=== PATIENT | male | born 1960 | race Caucasian/White ===

== ENCOUNTER 2024-10-24 08:13 | Outpatient (AMB) | payer OTHER, SELFPAY | END 2024-10-24 11:32 | disposition home or self-care (01) | LOC: HO.HMGAL 08:13 | PROVIDERS: Visit Provider Registered Nurse Emergency | DX: J30.89 Other allergic rhinitis (principal) | CPT/HCPCS: 95117; 95165 ==

== ENCOUNTER 2024-12-05 08:44 | Outpatient (AMB) | payer OTHER, SELFPAY | END 2024-12-05 08:58 | disposition home or self-care (01) | LOC: HO.HMGAL 08:44 | PROVIDERS: Visit Provider Registered Nurse Emergency | DX: J30.89 Other allergic rhinitis (principal) | CPT/HCPCS: 95117; 95165 ==

== ENCOUNTER 2024-12-28 09:16 | Outpatient (AMB) | payer OTHER, SELFPAY | END 2024-12-28 09:16 | disposition home or self-care (01) | LOC: HO.HMGAL 09:16 | PROVIDERS: Visit Provider Registered Nurse Emergency | DX: J30.89 Other allergic rhinitis (principal) | CPT/HCPCS: 95117; 95165 ==

== ENCOUNTER 2025-01-23 12:45 | Outpatient (AMB) | payer OTHER, SELFPAY | END 2025-01-23 12:49 | disposition home or self-care (01) | LOC: HO.HMGAL 12:45 | PROVIDERS: PCP Family Medicine; Visit Provider Registered Nurse Emergency | DX: J30.89 Other allergic rhinitis (principal) | CPT/HCPCS: 95117; 95165 ==

== ENCOUNTER 2025-02-20 08:21 | Outpatient (AMB) | payer OTHER, SELFPAY | END 2025-02-20 08:24 | disposition home or self-care (01) | LOC: HO.HMGAL 08:21 | PROVIDERS: PCP Family Medicine; Visit Provider Registered Nurse Emergency | DX: J30.89 Other allergic rhinitis (principal) | CPT/HCPCS: 95117; 95165 ==